=== PATIENT | female | born 1945 ===

== ENCOUNTER → 2018-07-04 13:15 | Outpatient (REF) | payer MEDICARE, SELFPAY | LOC: LAB 13:15 | PROVIDERS: Visit Provider Physician Assistant | DX: L40.0 Psoriasis vulgaris (principal); L81.4 Other melanin hyperpigmentation; Z71.89 Other specified counseling | CPT/HCPCS: 87070; 87205 ==

== ENCOUNTER → 2018-07-27 13:35 | Outpatient (REF) | payer MEDICARE, SELFPAY | LOC: LAB 13:35 | PROVIDERS: Visit Provider Physician Assistant | DX: L01.01 Non-bullous impetigo (principal); H01.001 Unspecified blepharitis right upper eyelid; H01.004 Unspecified blepharitis left upper eyelid; L40.8 Other psoriasis | CPT/HCPCS: 87070; 87077; 87186; 87205 ==